=== PATIENT | female | born 1980 | race Caucasian/White ===

== ENCOUNTER 2019-08-27 19:56 | Emergency (ER) | payer OTHER ==
[2019-08-27] MEDS ORDERED: METHYLPREDNISOLONE SOD SUCC 125MG/2ML VIAL ONE (20:39)
[2019-08-27] MEDS ORDERED: FAMOTIDINE/PF 20 MG/2 ML VIAL IV ONE (20:40)
== END 2019-08-27 21:55 | disposition home or self-care (01) ==
LOC: EDH 19:56
DX: R21 Rash and other nonspecific skin eruption (principal); L29.9 Pruritus, unspecified; I10 Essential (primary) hypertension; F31.9 Bipolar disorder, unspecified; Z90.710 Acquired absence of both cervix and uterus; Z85.3 Personal history of malignant neoplasm of breast; Z72.0 Tobacco use
CPT/HCPCS: 96374; 96375; 99284; J2930; J3490

== ENCOUNTER 2020-09-07 19:03 | Emergency (ER) | payer OTHER ==
[2020-09-07 20:11] LABS: BASOPHILS % (AUTO) 0.6 % (0.0-5.0); EOSINOPHILS % (AUTO) 0.1 % (0.0-8.0); HEMATOCRIT 37.2 % (36-48); MEAN CORPUSCULAR HEMOGLOBIN 28.8 pg (27.0-33.0); MEAN CORPUSCULAR HGB CONC 34.1 g/dL (32.0-36.0); MEAN CORPUSCULAR VOLUME 84.4 fL (79-99); MONOCYTES % (AUTO) 0.4 % (3.0-13.0); NEUTROPHILS % (AUTO) 90.5 % (40.0-77.0); PLATELET COUNT (AUTO) 448 K/uL (130-400); RED BLOOD CELL COUNT(AUTO) 4.41 MIL/uL (4.00-5.50); RED CELL DISTRIBUTION WIDTH 12.8 % (11.0-15.5); WHITE BLOOD COUNT (AUTO) 9.5 K/uL (4.8-10.8)
[2020-09-07 20:26] LABS: ALBUMIN 3.8 g/dL (3.5-5.0); BILIRUBIN,TOTAL 0.1 mg/dL (0.2-1.0); CREATININE 0.6 mg/dL (0.5-1.5); CRP QUANTITATIVE 3.6 mg/L (0.00-9.0); TOTAL PROTEIN, SERUM 7.2 g/dL (6.0-8.3)
[2020-09-07 20:27] LABS: POTASSIUM 2.6 mmol/L (3.5-5.1)
[2020-09-07] MEDS ORDERED: POTASSIUM CHLORIDE 20 MEQ ERTAB PO ONE (21:10)
[2020-09-07] MEDS ORDERED: KETOROLAC TROMETHAMINE 30MG/ML ONE (21:11)
[2020-09-07] MEDS ORDERED: MORPHINE SULFATE 2 MG/ML 1ML SYG ONE (21:11)
[2020-09-07 21:21] LABS: ERYTHROCYTE SEDIMENTATION RATE 10 MM/HR (0-20)
== END 2020-09-07 21:56 | disposition home or self-care (01) ==
LOC: EDH 19:03
DX: M79.642 Pain in left hand (principal); M79.641 Pain in right hand; F32.9 Major depressive disorder, single episode, unspecified; I10 Essential (primary) hypertension; Z85.3 Personal history of malignant neoplasm of breast; Z72.0 Tobacco use; Z90.710 Acquired absence of both cervix and uterus
CPT/HCPCS: 36415; 80053; 82550; 85025; 85651; 86140; 96374; 96375; 99284; J1885

== ENCOUNTER 2022-03-05 18:03 | Emergency (ER) | payer MEDICAID ==
[~2022-03-05] VITALS: Ht 152.4 cm; Wt 73.5 kg
[2022-03-05] MEDS ORDERED: HYDROXYZINE 25 MG TABLET PO ONE (18:30)
[2022-03-05 18:37] LABS: BASOPHILS % (AUTO) 0.3 % (0.0-5.0); EOSINOPHILS % (AUTO) 0.3 % (0.0-8.0); HEMATOCRIT 38.1 % (36-48); LYMPHOCYTES % (AUTO) 17.8 % (21.0-51.0); MEAN CORPUSCULAR HGB CONC 30.7 g/dL (32.0-36.0); MEAN CORPUSCULAR VOLUME 81.4 fL (79-99); MONOCYTES % (AUTO) 4.2 % (3.0-13.0); NEUTROPHILS % (AUTO) 76.9 % (40.0-77.0); PLATELET COUNT (AUTO) 398 K/uL (130-400); RED BLOOD CELL COUNT(AUTO) 4.68 MIL/uL (4.00-5.50); RED CELL DISTRIBUTION WIDTH 20.5 % (11.0-15.5); WHITE BLOOD COUNT (AUTO) 9.8 K/uL (4.8-10.8)
[2022-03-05 18:42] LABS: APPEARANCE,URINE Clear (CLEAR); BILIRUBIN,URINE Negative (NEGATIVE); COLOR,URINE Yellow (YELLOW); GLUCOSE, URINE (UA) Negative (NEGATIVE); KETONES,URINE Negative (NEGATIVE); LEUKOCYTE ESTERASE ,URINE Negative (NEGATIVE); NITRATE,URINE Negative (NEGATIVE); OCCULT BLOOD,URINE Negative (NEGATIVE); PROTEIN,URINE Negative (NEGATIVE); UROBILINOGEN,URINE 0.2 mg/dL (0.2-1.0)
[2022-03-05 18:44] LABS: HCG,QUAL RESULT NEGATIVE (NEGATIVE)
[2022-03-05 18:46] LABS: AMPHET/METH SCREEN,URINE NEGATIVE (NEGATIVE); BARBITURATE SCREEN, URINE NEGATIVE (NEGATIVE); BENZODIAZEPINES SCREEN,URINE POSITIVE (NEGATIVE); CANNABINOID SCREEN,URINE NEGATIVE (NEGATIVE); COCAINE SCREEN,URINE NEGATIVE (NEGATIVE); OPIATE SCREEN,URINE NEGATIVE (NEGATIVE); PHENCYCLIDINE SCREEN,URINE NEGATIVE (NEGATIVE)
[2022-03-05 19:20] VITALS: BP 147/88
[2022-03-05 19:28] LABS: ACETAMINOPHEN < 1 mcg/mL (10-30); ALANINE AMINOTRANSFERASE 20 U/L (12-78); ALBUMIN 3.4 g/dL (3.5-5.0); ALCOHOL, BLOOD 117 mg/dL (0-10); ASPARTATE AMINOTRANSFERASE 13 U/L (10-37); BILIRUBIN,TOTAL 0.1 mg/dL (0.2-1.0); CARBON DIOXIDE 27 mmol/L (21-32); CHLORIDE 109 mmol/L (101-111); CREATINE KINASE, TOTAL 44 U/L (21-232); CREATININE 0.6 mg/dL (0.5-1.5); GLOMERULAR FILTR. RATE CALC 116 mL/min (>60); GLUCOSE,RANDOM 90 mg/dL (70-105); POTASSIUM 3.6 mmol/L (3.5-5.1); SALICYLATE 3.2 mg/dL (2.8-20.0); SODIUM SERUM 145 mmol/L (136-145); TOTAL PROTEIN, SERUM 6.6 g/dL (6.0-8.3); UREA NITROGEN, BLOOD 7 mg/dL (7-18)
== END 2022-03-05 19:52 | disposition home or self-care (01) ==
LOC: EDH 18:03
DX: F13.10 Sedative, hypnotic or anxiolytic abuse, uncomplicated (principal); R03.0 Elevated blood-pressure reading, without diagnosis of hypertension; F41.9 Anxiety disorder, unspecified; Z20.822 Contact with and (suspected) exposure to COVID-19; F32.A Depression, unspecified; Z98.890 Other specified postprocedural states
CPT/HCPCS: 36415; 80053; 80305; 81003; 81025; 82550; 85025; 87635; 99283; C9803; G0481

== ENCOUNTER 2022-03-06 12:22 | Emergency (ER) | payer MEDICAID ==
[~2022-03-06] VITALS: Ht 152.4 cm; Wt 73.5 kg
[2022-03-06 12:25] VITALS: BP 149/86
[2022-03-06 12:48] LABS: BASOPHILS % (AUTO) 0.4 % (0.0-5.0); EOSINOPHILS % (AUTO) 0.6 % (0.0-8.0); HEMATOCRIT 42.2 % (36-48); LYMPHOCYTES % (AUTO) 15.9 % (21.0-51.0); MEAN CORPUSCULAR HEMOGLOBIN 24.8 pg (27.0-33.0); MEAN CORPUSCULAR HGB CONC 30.3 g/dL (32.0-36.0); MEAN CORPUSCULAR VOLUME 81.8 fL (79-99); MONOCYTES % (AUTO) 5.6 % (3.0-13.0); NEUTROPHILS % (AUTO) 76.8 % (40.0-77.0); PLATELET COUNT (AUTO) 438 K/uL (130-400); RED BLOOD CELL COUNT(AUTO) 5.16 MIL/uL (4.00-5.50); RED CELL DISTRIBUTION WIDTH 20.8 % (11.0-15.5)
[2022-03-06 12:58] LABS: AMPHET/METH SCREEN,URINE NEGATIVE (NEGATIVE); BARBITURATE SCREEN, URINE NEGATIVE (NEGATIVE); BENZODIAZEPINES SCREEN,URINE POSITIVE (NEGATIVE); CANNABINOID SCREEN,URINE NEGATIVE (NEGATIVE); COCAINE SCREEN,URINE NEGATIVE (NEGATIVE); OPIATE SCREEN,URINE NEGATIVE (NEGATIVE); PHENCYCLIDINE SCREEN,URINE NEGATIVE (NEGATIVE)
[2022-03-06 12:59] LABS: CARBON DIOXIDE 26 mmol/L (21-32); CHLORIDE 109 mmol/L (101-111); CREATININE 0.6 mg/dL (0.5-1.5); GLOMERULAR FILTR. RATE CALC 116 mL/min (>60); GLUCOSE,RANDOM 98 mg/dL (70-105); SODIUM SERUM 147 mmol/L (136-145); UREA NITROGEN, BLOOD 6 mg/dL (7-18)
[2022-03-06 13:00] LABS: APPEARANCE,URINE Clear (CLEAR); BILIRUBIN,URINE Negative (NEGATIVE); COLOR,URINE Yellow (YELLOW); GLUCOSE, URINE (UA) Negative (NEGATIVE); KETONES,URINE Negative (NEGATIVE); LEUKOCYTE ESTERASE ,URINE Negative (NEGATIVE); NITRATE,URINE Negative (NEGATIVE); OCCULT BLOOD,URINE Negative (NEGATIVE); PROTEIN,URINE Negative (NEGATIVE); UROBILINOGEN,URINE 0.2 mg/dL (0.2-1.0)
[2022-03-06 13:04] LABS: ALANINE AMINOTRANSFERASE 21 U/L (12-78); ALBUMIN 3.4 g/dL (3.5-5.0); ALCOHOL, BLOOD 109 mg/dL (0-10); ASPARTATE AMINOTRANSFERASE 12 U/L (10-37); BILIRUBIN,TOTAL 0.1 mg/dL (0.2-1.0); CREATINE KINASE, TOTAL 53 U/L (21-232); SALICYLATE 3.2 mg/dL (2.8-20.0); TOTAL PROTEIN, SERUM 6.9 g/dL (6.0-8.3)
[2022-03-06 13:30] LABS: ACETAMINOPHEN < 1 mcg/mL (10-30)
== END 2022-03-06 13:11 | disposition left against medical advice (07) ==
LOC: EDH 12:22
DX: F13.10 Sedative, hypnotic or anxiolytic abuse, uncomplicated (principal); F42.9 Obsessive-compulsive disorder, unspecified; F41.9 Anxiety disorder, unspecified; F32.A Depression, unspecified
CPT/HCPCS: 36415; 80053; 80305; 82550; 85025; 99283; G0481

== ENCOUNTER 2023-08-02 09:52 | Emergency (ER) | payer MEDICAID ==
[~2023-08-02] VITALS: Ht 152.4 cm; Wt 79.8 kg
[2023-08-02] MEDS ORDERED: HYDROCODONE/ACETAMINOPHEN 5/325 MG TAB PO ONE (10:30)
[2023-08-02] MEDS ORDERED: PRED5TAB PO (11:12)
[2023-08-02] MEDS ORDERED: NAPR-1084 PO (11:12)
[2023-08-02] MEDS ORDERED: PREDNISONE 10 MG TABLET PO ONE (11:30)
[2023-08-02] MEDS ORDERED: NAPROXEN 500 MG TABLET PO ONE (11:30)
[2023-08-02] MEDS ORDERED: COLC0.6T73 PO (11:30)
[2023-08-02] MEDS ORDERED: ACET-2079 PO (11:45)
[2023-08-02 11:50] VITALS: BP 145/84; PULSE 78; RESP 18; O2SAT 98
== END 2023-08-02 11:53 | disposition home or self-care (01) ==
LOC: EDH 09:52
DX: M10.071 Idiopathic gout, right ankle and foot (principal); M79.671 Pain in right foot; I10 Essential (primary) hypertension; F41.9 Anxiety disorder, unspecified; F32.A Depression, unspecified; Z79.52 Long term (current) use of systemic steroids; Z90.49 Acquired absence of other specified parts of digestive tract
CPT/HCPCS: 99284; 73650; 73630; J7512

== ENCOUNTER → 2023-08-11 | Emergency (ER) | payer MEDICAID ==
[~2023-08-11] VITALS: Ht 152.4 cm; Wt 78.5 kg
[~2023-08-11] MED LIST: ACET-2079 PO; COLC0.6T73 PO; NAPR-1084 PO; PRED5TAB PO
[2023-08-11 08:20] VITALS: BP 121/86; PULSE 67; RESP 18; O2SAT 100
== END ==
LOC: EDH 07:37
DX: M77.31 Calcaneal spur, right foot (principal); M77.32 Calcaneal spur, left foot; Z79.899 Other long term (current) drug therapy; Z90.710 Acquired absence of both cervix and uterus; Z98.890 Other specified postprocedural states
CPT/HCPCS: 99281